=== PATIENT | male | born 1955 | race African-American/Black ===

== ENCOUNTER 2022-08-08 17:26 | Inpatient (IN) | payer MEDICARE, OTHER ==
[~2022-08-08] VITALS: Ht 180.3 cm; Wt 69.9 kg
[2022-08-08] MEDS ORDERED: FENTANYL CITRATE 100 MCG/2 ML AMPUL IV ONE (17:45)
--- NOTE | 2022-08-08 17:50 | NUR ---
PT DOES NOT REMEMBER HIS HOME MEDICATION NAMES AND DOSAGES. HIS RELATIVES ARE GOING TO BRING HIS HOME MED LIST LATER.
[2022-08-08] MEDS ORDERED: IV NORMAL SALINE 500 ML BAG IV ONE (18:15)
[2022-08-08] MEDS ORDERED: PROPOFOL 1,000 MG/100 ML BOTTLE IV ONE (18:15)
--- NOTE | 2022-08-08 18:46 | NUR ---
started at 183: administered bolus of Diprivan & attempted to reduce dislocation. Administered 3 more doses of Diprivan andreduction attempts, w/o success. Pt came around and became alert and oriented x 4. Finished by 1841. VSS.
[2022-08-08] MEDS ORDERED: MORPHINE SULFATE 4 MG/1 ML DISP.SYRIN IV ONE (19:00)
--- NOTE | 2022-08-08 19:06 | NUR ---
Dr. Gordon on panel call with Solomon Miller NP.
[2022-08-08] MEDS ORDERED: ONDANSETRON 4 MG/2 ML VIAL IV PRN (19:15)
[2022-08-08] MEDS ORDERED: HYDROCODONE/APAP 5-325MG TABLET PO PRN (19:15)
[2022-08-08] MEDS ORDERED: MAGNESIUM HYDROXIDE 30 ML LIQUID UDC PO PRN (19:15)
[2022-08-08] MEDS ORDERED: MORPHINE SULFATE 2 MG/1 ML DISP.SYRIN IV PRN (19:15)
[2022-08-08] MEDS ORDERED: REMEDY ESSENTIAL ZINC PASTE 113 GM TP PRN (19:15)
[2022-08-08] MEDS ORDERED: MORPHINE SULFATE 2 MG/1 ML DISP.SYRIN ONE (19:20)
[2022-08-08 19:24] LABS: HEMATOCRIT 34.2 % (36.7-47.1); MEAN CORPUSCULAR HEMOGLOBIN 27.5 uug (23.8-33.4); MEAN CORPUSCULAR VOLUME 85.4 fL (73.0-96.2); PLATELET COUNT (AUTO) 244 K/uL (152-348)
[2022-08-08 19:31] LABS: CREATININE 1.1 mg/dL (0.6-1.3); POTASSIUM 4.4 mmol/L (3.5-5.1)
--- NOTE | 2022-08-08 19:50 | NUR ---
MRSA and COVID swab sent to lab.
[2022-08-08] MEDS ORDERED: ONDANSETRON 4 MG/2 ML VIAL IV ONE (20:45)
[2022-08-08] MEDS ORDERED: HYDROMORPHONE 1 MG/1 ML DISP.SYRIN IV ONE ×2 (20:45→22:15)
[2022-08-08] MEDS ORDERED: FORM20VI IH (20:58)
[2022-08-08] MEDS ORDERED: ALBU18HF2 INH (20:58)
[2022-08-08] MEDS ORDERED: ALBU2.5V38 NEB (20:58)
[2022-08-08] MEDS ORDERED: GABA-536 PO (20:58)
[2022-08-08] MEDS ORDERED: SERT50TA PO (20:58)
[2022-08-08] MEDS ORDERED: FINA5TAB3 PO (20:58)
[2022-08-08] MEDS ORDERED: FAMO-132 PO (20:58)
[2022-08-08] MEDS ORDERED: SENN-261 PO (20:58)
[2022-08-08] MEDS ORDERED: TAMS-3 PO (20:58)
[2022-08-08] MEDS ORDERED: ROSU10TA2 PO (20:58)
[2022-08-08] MEDS ORDERED: BENZ200C53 PO (20:58)
[2022-08-08] MEDS ORDERED: AMLO10TA4 PO (20:58)
[2022-08-08] MEDS ORDERED: MEMA10TA PO (20:58)
[2022-08-08] MEDS ORDERED: HYDR-3972 PO (20:58)
[2022-08-08] MEDS ORDERED: LEVO50TA8 PO (20:58)
[2022-08-08] MEDS ORDERED: CLOP75TA15 PO (20:58)
[2022-08-08] MEDS ORDERED: REVE175V INH (20:58)
[2022-08-08] MEDS ORDERED: LEVE500T9 PO (20:58)
[2022-08-08] MEDS ORDERED: METF-494 PO (20:58)
[2022-08-08] MEDS ORDERED: PRED20TA PO (20:58)
[2022-08-08] MEDS ORDERED: HYDROMORPHONE 1 MG/1 ML DISP.SYRIN ONE (21:57)
--- NOTE | 2022-08-08 22:37 | NUR ---
Report given to [facility].
--- NOTE | 2022-08-08 23:00 | NUR ---
Received Pt and SBAR from [facility]. Pt is a 67 yr old male who was admitted for Right hip dislocation at 2255 on 08/09/22. Pt is A&Ox4. No known allergies. Current vitals are BP: 139/92, T: 98.2, P: 77, RR: 20, SpO2: 99%, and Pain: 7/10. Will give Pt Dilaudid once 4 hours have passed from previous administration. Pt has a condom catheter; Clear and yellow urine noted. Pt is scheduled to have surgery tomorrow w/ pt's consent. Pt has a 20G IV RAC, with no fluids running. Pt is NPO. Pt stated to having "a DNR." Will contact (or have day shift contact) Pt's sister, Valery Diaz, for the DNR. Safety measures in place. Will continue to monitor.
[2022-08-09 00:02] VITALS: BP 139/92
[2022-08-09] MEDS: HYDROMORPHONE 1 MG/1 ML DISP.SYRIN IV PRN ×2 (01:34→06:08)
[2022-08-09 05:20] VITALS: BP 158/94
[2022-08-09 06:30] LABS: HEMATOCRIT 32.9 % (36.7-47.1); MEAN CORPUSCULAR HEMOGLOBIN 27.1 uug (23.8-33.4); MEAN CORPUSCULAR VOLUME 85.4 fL (73.0-96.2); PLATELET COUNT (AUTO) 228 K/uL (152-348)
--- NOTE | 2022-08-09 07:00 | NUR ---
End of shift note: Pt is A&Ox3. Use Dilaudid to control pain. Pt scheduled to have surgery today, but could not find consent for surgery for today in Pt's record in [facility]. According to Pt, he is on a DNR. Will inform day shift of contacting Pt's sister for copy of DNR form. Pt on 4L O2 via NC. Safety measures are in place.
[2022-08-09 07:53] LABS: CREATININE 0.8 mg/dL (0.6-1.3); MAGNESIUM 2.2 mg/dL (1.8-2.4); PHOSPHOROUS 3.6 mg/dL (2.5-4.9); POTASSIUM 3.9 mmol/L (3.5-5.1)
[2022-08-09 08:00] LABS: THYROID STIMULATING HORMONE 0.639 mIU/mL (0.358-3.740)
[2022-08-09] MEDS ORDERED: PANTOPRAZOLE SODIUM 40 MG VIAL IV SCH (09:00)
[2022-08-09] MEDS ORDERED: INSULIN REGULAR, HUMAN 300 UNIT/3 ML VIAL SQ PRN (09:30)
[2022-08-09] MEDS ORDERED: DEXTROSE 50% 50 ML DISP.SYRIN IV PRN (09:30)
[2022-08-09] MEDS ORDERED: FENTANYL CITRATE 100 MCG/2 ML AMPUL ONE (10:35)
--- NOTE | 2022-08-09 10:35 | NUR ---
pt went to or via bed for the procedure
[2022-08-09] MEDS: BLOOD SUGAR DIAGNOSTIC 1 EACH STRIP VI SCH ×3 (12:24→20:41)
--- NOTE | 2022-08-09 12:55 | NUR ---
pt received back from recovery room via bed .vs are stable call light with in reach
[2022-08-09] MEDS: GABAPENTIN 400 MG CAPSULE PO SCH ×3 (12:57→20:35)
[2022-08-09 13:00] VITALS: BP 137/86
[2022-08-09] MEDS: POTASSIUM CHLORIDE 20 MEQ in IV D5 1/2 NS 1000 ML 1,000 ML IV PRN (13:33)
[2022-08-09 16:00] VITALS: BP 131/84
[2022-08-09] MEDS: levETIRAcetam 500 MG TABLET PO SCH (18:56)
[2022-08-09 20:00] VITALS: BP 121/76
[2022-08-09] MEDS: ATORVASTATIN 20 MG TABLET PO SCH (20:34)
[2022-08-09] MEDS: TAMSULOSIN HCL 0.4 MG CAP.SR.24H PO SCH (20:34)
[2022-08-09] MEDS: ACETAMINOPHEN 325 MG TABLET PO PRN (20:35)
[2022-08-09] MEDS ORDERED: levETIRAcetam 500 MG TABLET PO SCH (21:00)
[2022-08-10 04:00] VITALS: BP 105/67
--- NOTE | 2022-08-10 04:38 | NUR ---
AAOx4 On 2L nasal cannula. Afebrile at beginning of shift, Temp 102.[address] Membreno aware. Blood cultures x2, ua Urine C&S collected and sent to lab. Ice pack applied. Will monitor patient. No acute distress noted.Will monitor patient's temperature.
[2022-08-10] MEDS: POTASSIUM CHLORIDE 20 MEQ in IV D5 1/2 NS 1000 ML 1,000 ML IV PRN ×2 (05:24→20:57)
[2022-08-10] MEDS: LEVOTHYROXINE SODIUM 50 MCG TABLET PO SCH (06:10)
[2022-08-10] MEDS: BLOOD SUGAR DIAGNOSTIC 1 EACH STRIP VI SCH ×4 (06:31→20:16)
[2022-08-10] MEDS: MORPHINE SULFATE 2 MG/1 ML DISP.SYRIN IV PRN ×3 (06:37→20:17)
[2022-08-10] MEDS: FINASTERIDE 5 MG TABLET PO SCH (08:16)
[2022-08-10] MEDS: MEMANTINE HCL 10 MG TABLET PO SCH (08:16)
[2022-08-10] MEDS: levETIRAcetam 500 MG TABLET PO SCH (08:16)
[2022-08-10] MEDS: AMLODIPINE 10 MG TABLET PO SCH (08:16)
[2022-08-10] MEDS: GABAPENTIN 400 MG CAPSULE PO SCH ×4 (08:16→20:16)
[2022-08-10] MEDS: SERTRALINE HCL 50 MG TABLET PO SCH (08:16)
[2022-08-10] MEDS: PANTOPRAZOLE SODIUM 40 MG TABLET.DR PO SCH (08:56)
[2022-08-10] MEDS ORDERED: CLOPIDOGREL 75 MG TABLET PO SCH (09:00)
[2022-08-10] MEDS ORDERED: Medication Not On Formulary EA (Rosuvastatin Calcium (Crestor) 1 TAB) PO SCH (09:00)
[2022-08-10] MEDS ORDERED: LEVE500T83 PO (10:11)
[2022-08-10 12:01] LABS: HEMATOCRIT 35.2 % (36.7-47.1); MEAN CORPUSCULAR HEMOGLOBIN 28.4 uug (23.8-33.4); MEAN CORPUSCULAR VOLUME 86.2 fL (73.0-96.2); PLATELET COUNT (AUTO) 203 K/uL (152-348)
[2022-08-10 14:31] VITALS: BP 116/77
[2022-08-10] MEDS: ACETAMINOPHEN 325 MG TABLET PO PRN ×2 (15:27→21:42)
[2022-08-10] MEDS: levoFLOXacin 500 MG/D5W 500 MG in PREMIXED 1 EACH IV SCH (16:21)
[2022-08-10 17:10] VITALS: BP 124/78
--- NOTE | 2022-08-10 19:30 | NUR ---
Received patient lying in bed. AAOx4. In no acute distress. Noted with occasional cough, but non-productive. Complain of pain, will provide pain medication per order. Condom catheter intact and patent. IV site on right AC intact and patent. INF infusing. Needs assessed and attended to. Safety measure initiated and call light within reached.
[2022-08-10 20:00] VITALS: BP 112/81
[2022-08-10] MEDS: TAMSULOSIN HCL 0.4 MG CAP.SR.24H PO SCH (20:16)
[2022-08-10] MEDS: ATORVASTATIN 20 MG TABLET PO SCH (20:16)
[2022-08-10] MEDS: LEVETIRACETAM 500 MG PO SCH (20:16)
--- NOTE | 2022-08-10 22:12 | NUR ---
patient IV site on right AC keeps on beeping when patient bends his elbow. Place new IV on left FA #22G and continue infusing IV fluids at that site.
[2022-08-11 04:00] VITALS: BP 119/72
--- NOTE | 2022-08-11 05:19 | NUR ---
Slept well through out the night. IV site on both right AC and left FA remains intact and patent. IVF infusing to left FA IV site. Condom cath intact and patent. Needs attended to and met. Safety measure maintained and call light within reached.
[2022-08-11] MEDS: LEVOTHYROXINE SODIUM 50 MCG TABLET PO SCH (06:14)
[2022-08-11] MEDS: PANTOPRAZOLE SODIUM 40 MG TABLET.DR PO SCH (06:14)
[2022-08-11] MEDS: BLOOD SUGAR DIAGNOSTIC 1 EACH STRIP VI SCH ×4 (06:34→20:42)
[2022-08-11 07:27] LABS: HEMATOCRIT 27.8 % (36.7-47.1); MEAN CORPUSCULAR HEMOGLOBIN 28.3 uug (23.8-33.4); MEAN CORPUSCULAR VOLUME 89.7 fL (73.0-96.2); PLATELET COUNT (AUTO) 156 K/uL (152-348)
[2022-08-11 07:31] LABS: CARBON DIOXIDE 27 mmol/L (21-32); CHLORIDE 102 mmol/L (98-107); CREATININE 0.7 mg/dL (0.6-1.3); UREA NITROGEN, BLOOD 7 mg/dL (7-18)
[2022-08-11] MEDS: MEMANTINE HCL 10 MG TABLET PO SCH (08:08)
[2022-08-11] MEDS: FINASTERIDE 5 MG TABLET PO SCH (08:08)
[2022-08-11] MEDS: GABAPENTIN 400 MG CAPSULE PO SCH ×4 (08:08→20:33)
[2022-08-11] MEDS: AMLODIPINE 10 MG TABLET PO SCH (08:08)
[2022-08-11] MEDS: SERTRALINE HCL 50 MG TABLET PO SCH (08:08)
[2022-08-11 08:37] LABS: GLUCOSE 792 mg/dL (74-106); POTASSIUM 7.4 mmol/L (3.5-5.1)
[2022-08-11 11:38] VITALS: BP 114/73
[2022-08-11 11:40] LABS: *BILIRUBIN,URIN NEGATIVE (NEGATIVE); *BLOOD, URINE NEGATIVE (NEGATIVE); *CLARITY,URINE CLEAR (CLEAR); *COLOR,URINE YELLOW (YELLOW); *KETONES,URINE NEGATIVE (NEGATIVE); *UROBILINOGEN,URINE 0.2 E.U./dl (NORMAL); LEUKOCYTE ESTERASE ,URINE 1+ (NEGATIVE); NITRITE, URINE NEGATIVE (NEGATIVE); UGLUCOSE NEGATIVE (NEGATIVE)
[2022-08-11] MEDS: MORPHINE SULFATE 2 MG/1 ML DISP.SYRIN IV PRN ×2 (11:48→20:32)
[2022-08-11 13:00] LABS: CREATININE 0.9 mg/dL (0.6-1.3); POTASSIUM 4.4 mmol/L (3.5-5.1)
[2022-08-11 13:10] LABS: BACTERIA,URINE NONE SEEN /HPF (NONE SEEN); RBC,URINE 0-3 /HPF (0-3); SQUAMOUS EPITHELIAL CELL,UR FEW /HPF (NONE SEEN)
[2022-08-11] MEDS: levoFLOXacin 500 MG/D5W 500 MG in PREMIXED 1 EACH IV SCH (15:17)
[2022-08-11 16:24] VITALS: BP 108/77
--- NOTE | 2022-08-11 19:30 | NUR ---
Received patient lying in bed. AAOx4 with forgetfulness. In no acute distress. IV site on right AC and left FA intact and patent. Needs assessed and attended to. Safety measure initiated and call light within reached.
[2022-08-11 20:00] VITALS: BP 122/79
[2022-08-11] MEDS: LEVETIRACETAM 500 MG PO SCH (20:32)
[2022-08-11] MEDS: ATORVASTATIN 20 MG TABLET PO SCH (20:33)
[2022-08-11] MEDS: ACETAMINOPHEN 325 MG TABLET PO PRN (20:33)
[2022-08-11] MEDS: TAMSULOSIN HCL 0.4 MG CAP.SR.24H PO SCH (20:33)
[2022-08-12 04:00] VITALS: BP 120/68
--- NOTE | 2022-08-12 05:19 | NUR ---
Slept well through out the night. IV site on both right AC and left FA remains intact and patent. Abduction pillow remians in bet legs. Needs attended to and met. Safety measure maintained and call light within reached.
[2022-08-12] MEDS: PANTOPRAZOLE SODIUM 40 MG TABLET.DR PO SCH (06:02)
[2022-08-12] MEDS: LEVOTHYROXINE SODIUM 50 MCG TABLET PO SCH (06:02)
[2022-08-12] MEDS: BLOOD SUGAR DIAGNOSTIC 1 EACH STRIP VI SCH ×2 (06:34→10:49)
[2022-08-12 06:46] LABS: HEMATOCRIT 32.5 % (36.7-47.1); MEAN CORPUSCULAR HEMOGLOBIN 27.8 uug (23.8-33.4); MEAN CORPUSCULAR VOLUME 85.5 fL (73.0-96.2); PLATELET COUNT (AUTO) 197 K/uL (152-348)
[2022-08-12 07:16] LABS: CARBON DIOXIDE 33 mmol/L (21-32); CHLORIDE 104 mmol/L (98-107); CREATININE 0.7 mg/dL (0.6-1.3); GLUCOSE 96 mg/dL (74-106); POTASSIUM 3.9 mmol/L (3.5-5.1); UREA NITROGEN, BLOOD 9 mg/dL (7-18)
[2022-08-12] MEDS: FINASTERIDE 5 MG TABLET PO SCH (08:12)
[2022-08-12] MEDS: MEMANTINE HCL 10 MG TABLET PO SCH (08:12)
[2022-08-12] MEDS: GABAPENTIN 400 MG CAPSULE PO SCH ×3 (08:12→16:08)
[2022-08-12] MEDS: AMLODIPINE 10 MG TABLET PO SCH (08:12)
[2022-08-12] MEDS: SERTRALINE HCL 50 MG TABLET PO SCH (08:12)
[2022-08-12 11:31] VITALS: BP 103/75
[2022-08-12] MEDS ORDERED: LEVO500T90 PO (13:23)
[2022-08-12] MEDS ORDERED: ATOR20TA PO (13:23)
[2022-08-12] MEDS ORDERED: PANT40TA49 PO (13:23)
[2022-08-12] MEDS: MORPHINE SULFATE 2 MG/1 ML DISP.SYRIN IV PRN (14:06)
[2022-08-12] MEDS ORDERED: levoFLOXacin 500 MG TABLET PO SCH (15:00)
[2022-08-12 15:43] VITALS: BP 100/68
--- NOTE | 2022-08-12 16:48 | NUR ---
dc orders received noted and carried out,dc instruction given to the pt .dc pt to aru via bed in stable condition
[2022-08-12] MEDS ORDERED: LIDOCAINE-MPF 2% 5 ML VIAL IJ ONE (16:59)
[2022-08-12] MEDS ORDERED: PROPOFOL 200 MG/20 ML BOTTLE IV ONE (16:59)
[2022-08-12] MEDS ORDERED: METF-440 PO (19:53)
== END 2022-08-12 17:00 | DRG 560 ==
LOC: ER 17:41 → MEDSURG3 22:39
PROVIDERS: ADMIT Nurse Practitioner Acute Care; ATTEND Nurse Practitioner Acute Care
PROC: 0SWRXJZ Revision of Synthetic Substitute in Right Hip Joint, Femoral Surface, External Approach (ICD-10-PCS; principal; 2022-08-09)
DX: T84.020A Dislocation of internal right hip prosthesis, initial encounter (principal); J96.10 Chronic respiratory failure, unspecified whether with hypoxia or hypercapnia; Y79.8 Miscellaneous orthopedic devices associated with adverse incidents, not elsewhere classified; Y92.038 Other place in apartment as the place of occurrence of the external cause; E11.9 Type 2 diabetes mellitus without complications; Y79.2 Prosthetic and other implants, materials and accessory orthopedic devices associated with adverse incidents; Z86.73 Personal history of transient ischemic attack (TIA), and cerebral infarction without residual deficits; Z96.643 Presence of artificial hip joint, bilateral; G40.909 Epilepsy, unspecified, not intractable, without status epilepticus; J43.9 Emphysema, unspecified; N40.0 Benign prostatic hyperplasia without lower urinary tract symptoms; I10 Essential (primary) hypertension; R50.9 Fever, unspecified; F03.90 Unspecified dementia, unspecified severity, without behavioral disturbance, psychotic disturbance, mood disturbance, and anxiety; Z99.81 Dependence on supplemental oxygen; Z79.899 Other long term (current) drug therapy; Z79.82 Long term (current) use of aspirin; Z79.890 Hormone replacement therapy; E03.9 Hypothyroidism, unspecified
CPT/HCPCS: 36415; 71045; 73502; 73503; 73551; 83735; 84100; 84443; 85025; 85610; 87040; 93005; A4663; C9113; G0378; G0500; J1170; J1815; J1956; J2270; J2405; J3010; J3480; J3490

== ENCOUNTER 2022-08-12 17:37 | Inpatient (IN) | payer MEDICARE, OTHER ==
[~2022-08-12] VITALS: Ht 180.3 cm; Wt 69.9 kg
[~2022-08-12 17:37] MED LIST: ALBU18HF2 INH; ALBU2.5V38 NEB; AMLO10TA4 PO; ATOR20TA PO; BENZ200C53 PO; CLOP75TA15 PO; FAMO-132 PO; FINA5TAB3 PO; FORM20VI IH; GABA-536 PO; HYDR-3972 PO; LEVE500T83 PO; LEVO500T90 PO; LEVO50TA8 PO; MEMA10TA PO; METF-494 PO; PANT40TA49 PO; PRED20TA PO; REVE175V INH; ROSU10TA2 PO; SENN-261 PO; SERT50TA PO; TAMS-3 PO
[2022-08-12 17:54] VITALS: BP 122/56
--- NOTE | 2022-08-12 17:58 | NUR ---
67 year old male admitted to rehab vias bed in stable condition.vs are stable call light with in reach md notified for admission orders
--- NOTE | 2022-08-12 19:20 | NUR ---
Received Pt from Day shift. Pt is A&Ox4 and is on 2L of O2 NC. Pt is admitted as Rehab Pt. Safety measures implemented. Pt has a 22G on left wrist w/ no fluids running. Safety measures in check. Will continue to monitor.
[2022-08-12] MEDS ORDERED: ALBUTEROL SULFATE 2.5 MG/3 ML NEBU NEB PRN (19:45)
[2022-08-12] MEDS ORDERED: METF-440 PO (19:53)
[2022-08-12] MEDS: SENNOSIDES 1 TABLET PO SCH (20:19)
[2022-08-12] MEDS: ATORVASTATIN 20 MG TABLET PO SCH (20:19)
[2022-08-12] MEDS: TAMSULOSIN HCL 0.4 MG CAP.SR.24H PO SCH (20:19)
[2022-08-12] MEDS: GABAPENTIN 400 MG CAPSULE PO SCH (20:20)
[2022-08-12] MEDS: LEVETIRACETAM 500 MG PO SCH (21:47)
[2022-08-12] MEDS: HYDROCODONE/APAP 5-325MG TABLET PO PRN (21:47)
[2022-08-12 21:56] VITALS: BP 109/77
[2022-08-13 04:00] VITALS: BP 101/59
[2022-08-13] MEDS: LEVOTHYROXINE SODIUM 50 MCG TABLET PO SCH (06:13)
--- NOTE | 2022-08-13 06:44 | NUR ---
End of shift Note: Pt is A&Ox4 and is cooperative. Currently ST on tele. Pt on no O2. Pt is continent. Vitals are WNL. Safety measures implemented. Addendum: 08/13/22 at 0648 by BERNARDA JUAREZ RN Disregard Note.
--- NOTE | 2022-08-13 06:48 | NUR ---
End of shift Note: Pt is A&Ox4 and is cooperative. Currently ST on tele. Pt on 2L O2 via NC. Pt is continent. Vitals are BP: 101/59, P: 62, RR: 18, SpO2: 100%, and T: 98.4. There was no BM this shift. Safety measures implemented. Safety measures are implemented.
[2022-08-13 07:34] VITALS: BP 112/81
[2022-08-13] MEDS: METFORMIN HCL 500 MG TABLET PO SCH ×2 (08:28→17:20)
[2022-08-13] MEDS: AMLODIPINE 10 MG TABLET PO SCH (08:28)
[2022-08-13] MEDS: SERTRALINE HCL 50 MG TABLET PO SCH (08:28)
[2022-08-13] MEDS: MEMANTINE HCL 10 MG TABLET PO SCH (08:28)
[2022-08-13] MEDS: predniSONE 10 MG TABLET PO SCH (08:28)
[2022-08-13] MEDS: FAMOTIDINE 20 MG TABLET PO SCH (08:28)
[2022-08-13] MEDS: FINASTERIDE 5 MG TABLET PO SCH (08:28)
[2022-08-13] MEDS: CLOPIDOGREL 75 MG TABLET PO SCH (08:28)
[2022-08-13] MEDS: GABAPENTIN 400 MG CAPSULE PO SCH ×4 (08:37→20:41)
[2022-08-13] MEDS: HYDROCODONE/APAP 5-325MG TABLET PO PRN ×3 (08:49→20:46)
[2022-08-13] MEDS ORDERED: BENZONATATE 100 MG CAPSULE PO PRN (09:00)
[2022-08-13] MEDS ORDERED: HYDROCODONE/APAP 5-325MG TABLET PO PRN (09:00)
[2022-08-13] MEDS ORDERED: ALBUTEROL SULFATE 2.5 MG/3 ML NEBU NEB SCH (09:00)
[2022-08-13] MEDS ORDERED: Medication Not On Formulary EA (Rosuvastatin Calcium (Crestor) 1 TAB) PO SCH (09:00)
[2022-08-13] MEDS ORDERED: Medication Not On Formulary EA (Metformin Hcl (Metformin Hcl Er) 1 TAB) PO SCH (09:00)
[2022-08-13] MEDS ORDERED: levoFLOXacin 500 MG TABLET PO SCH (15:00)
[2022-08-13 15:14] VITALS: BP 109/74
[2022-08-13] MEDS: TAMSULOSIN HCL 0.4 MG CAP.SR.24H PO SCH (20:40)
[2022-08-13] MEDS: ATORVASTATIN 20 MG TABLET PO SCH (20:40)
[2022-08-13] MEDS: SENNOSIDES 1 TABLET PO SCH (20:41)
[2022-08-13] MEDS: LEVETIRACETAM 500 MG PO SCH (20:41)
--- NOTE | 2022-08-13 22:00 | NUR ---
1915- The patient is aox4 and on 2 liters nasal cannula. The patient has a left wrist hep lock that is clean, dry, and intact. The patient has no signs of distress or complains of pain. Call light within reach, bed at lowest position, bed alarm on, and wheels lock. Will continue to monitor throughout the shift. 2200- The patient request for extra water. Item is given to the patient. The patient has no signs of distress. Will continue to monitor throughout the shift. 0100- The patient is asleep and has no complains of pain. The patient has no signs of distress. Will continue to monitor throughout the shift.
[2022-08-14] MEDS: LEVOTHYROXINE SODIUM 50 MCG TABLET PO SCH (06:03)
[2022-08-14 07:49] VITALS: BP 107/72
[2022-08-14] MEDS: HYDROCODONE/APAP 5-325MG TABLET PO PRN ×3 (07:52→21:10)
[2022-08-14] MEDS: METFORMIN HCL 500 MG TABLET PO SCH ×2 (08:01→17:43)
[2022-08-14] MEDS: FINASTERIDE 5 MG TABLET PO SCH (08:01)
[2022-08-14] MEDS: GABAPENTIN 400 MG CAPSULE PO SCH ×4 (08:02→20:58)
[2022-08-14] MEDS: predniSONE 10 MG TABLET PO SCH (08:02)
[2022-08-14] MEDS: MEMANTINE HCL 10 MG TABLET PO SCH (08:02)
[2022-08-14] MEDS: CLOPIDOGREL 75 MG TABLET PO SCH (08:02)
[2022-08-14] MEDS: SERTRALINE HCL 50 MG TABLET PO SCH (08:02)
[2022-08-14] MEDS: FAMOTIDINE 20 MG TABLET PO SCH (08:03)
[2022-08-14] MEDS: AMLODIPINE 10 MG TABLET PO SCH (08:03)
[2022-08-14] MEDS ORDERED: [UNRECOGNIZED DRUG - OTHER] INH SCH (13:00)
[2022-08-14] MEDS ORDERED: PATIENT MAY USE OWN MED- MD OK INH SCH ×2 (13:30→17:00)
[2022-08-14] MEDS ORDERED: PATIENT MAY USE OWN MED- MD OK INH PRN (13:30)
--- NOTE | 2022-08-14 13:44 | NUR ---
SISTER JF BROUGHT HOME MEDS ( INHALATION MEDICATIONS) OKAYED BY TORIE CHAMBERS AND HANDED TO PHARMACIST DAIJA.
[2022-08-14 16:34] VITALS: BP 114/71
[2022-08-14] MEDS: [UNRECOGNIZED DRUG - OTHER] INH SCH (17:15)
[2022-08-14] MEDS: TAMSULOSIN HCL 0.4 MG CAP.SR.24H PO SCH (20:57)
[2022-08-14] MEDS: SENNOSIDES 1 TABLET PO SCH (20:57)
[2022-08-14] MEDS: ROSUVASTATIN 10 MG PO SCH (20:57)
[2022-08-14] MEDS: LEVETIRACETAM 500 MG PO SCH (20:57)
[2022-08-14] MEDS: FORMOTEROL 20 MCG IH SCH (21:18)
[2022-08-14 21:19] VITALS: BP 115/81
[2022-08-15 04:58] VITALS: BP 122/62
[2022-08-15] MEDS: LEVOTHYROXINE SODIUM 50 MCG TABLET PO SCH (06:11)
[2022-08-15 08:01] VITALS: BP 105/69
[2022-08-15] MEDS: HYDROCODONE/APAP 5-325MG TABLET PO PRN ×3 (08:37→20:46)
[2022-08-15] MEDS: FINASTERIDE 5 MG TABLET PO SCH (08:49)
[2022-08-15] MEDS: predniSONE 10 MG TABLET PO SCH (08:49)
[2022-08-15] MEDS: METFORMIN HCL 500 MG TABLET PO SCH ×2 (08:49→17:18)
[2022-08-15] MEDS: AMLODIPINE 10 MG TABLET PO SCH (08:50)
[2022-08-15] MEDS: MEMANTINE HCL 10 MG TABLET PO SCH (08:50)
[2022-08-15] MEDS: SERTRALINE HCL 50 MG TABLET PO SCH (08:50)
[2022-08-15] MEDS: FAMOTIDINE 20 MG TABLET PO SCH (08:51)
[2022-08-15] MEDS: CLOPIDOGREL 75 MG TABLET PO SCH (08:51)
[2022-08-15] MEDS: GABAPENTIN 400 MG CAPSULE PO SCH ×4 (08:56→20:44)
[2022-08-15] MEDS ORDERED: PATIENT MAY USE OWN MED- MD OK PO SCH (09:00)
[2022-08-15] MEDS: IPRATROPIUM INH PRN ×2 (09:06→13:57)
[2022-08-15] MEDS: ALBUTEROL INH PRN ×2 (09:06→13:57)
[2022-08-15] MEDS: FORMOTEROL 20 MCG IH SCH ×2 (09:15→21:38)
[2022-08-15 11:09] VITALS: BP 106/62
[2022-08-15] MEDS: [UNRECOGNIZED DRUG - OTHER] INH SCH (13:57)
--- NOTE | 2022-08-15 16:22 | NUR ---
INDIVIDUALIZED PLAN OF CARE
[2022-08-15 16:58] VITALS: BP 96/67
[2022-08-15] MEDS: NUTRISOURCE FIBER 4 GM PACKET PO SCH (17:18)
[2022-08-15] MEDS: TAMSULOSIN HCL 0.4 MG CAP.SR.24H PO SCH (20:44)
[2022-08-15] MEDS: SENNOSIDES 1 TABLET PO SCH (20:44)
[2022-08-15] MEDS: LEVETIRACETAM 500 MG PO SCH (20:49)
[2022-08-15] MEDS: ROSUVASTATIN 10 MG PO SCH (20:50)
[2022-08-15 22:16] VITALS: BP 127/77
[2022-08-16 04:18] VITALS: BP 103/55
[2022-08-16] MEDS: LEVOTHYROXINE SODIUM 50 MCG TABLET PO SCH (06:26)
[2022-08-16 08:23] VITALS: BP 113/72
[2022-08-16] MEDS: FAMOTIDINE 20 MG TABLET PO SCH (09:07)
[2022-08-16] MEDS: MEMANTINE HCL 10 MG TABLET PO SCH (09:07)
[2022-08-16] MEDS: AMLODIPINE 10 MG TABLET PO SCH (09:07)
[2022-08-16] MEDS: SERTRALINE HCL 50 MG TABLET PO SCH (09:07)
[2022-08-16] MEDS: METFORMIN HCL 500 MG TABLET PO SCH ×2 (09:07→17:17)
[2022-08-16] MEDS: FINASTERIDE 5 MG TABLET PO SCH (09:08)
[2022-08-16] MEDS: CLOPIDOGREL 75 MG TABLET PO SCH (09:08)
[2022-08-16] MEDS: GABAPENTIN 400 MG CAPSULE PO SCH ×4 (09:08→20:23)
[2022-08-16] MEDS: HYDROCODONE/APAP 5-325MG TABLET PO PRN ×3 (09:08→20:51)
[2022-08-16] MEDS: NUTRISOURCE FIBER 4 GM PACKET PO SCH (09:08)
[2022-08-16] MEDS: predniSONE 10 MG TABLET PO SCH (09:13)
[2022-08-16] MEDS: FORMOTEROL 20 MCG IH SCH ×2 (09:30→19:30)
[2022-08-16] MEDS: IPRATROPIUM INH PRN (10:06)
[2022-08-16] MEDS: ALBUTEROL INH PRN (10:06)
[2022-08-16] MEDS: [UNRECOGNIZED DRUG - OTHER] INH SCH (12:37)
[2022-08-16 16:48] VITALS: BP 110/66
--- NOTE | 2022-08-16 18:27 | NUR ---
no events noted during shift
[2022-08-16 20:08] VITALS: BP 120/72
[2022-08-16] MEDS: SENNOSIDES 1 TABLET PO SCH (20:23)
[2022-08-16] MEDS: ROSUVASTATIN 10 MG PO SCH (20:23)
[2022-08-16] MEDS: LEVETIRACETAM 500 MG PO SCH (20:23)
[2022-08-16] MEDS: TAMSULOSIN HCL 0.4 MG CAP.SR.24H PO SCH (20:23)
[2022-08-17] MEDS: HYDROCODONE/APAP 5-325MG TABLET PO PRN ×3 (05:08→14:11)
[2022-08-17 05:13] VITALS: BP 116/76
--- NOTE | 2022-08-17 05:30 | NUR ---
no events noted overnight, patient is alert, oriented x4, no sob, respirations are even nonlabored, skin warm and dry to touch, pain is managed with pain medication and with nonpharmacological interventions. effective. kept patient clean and comfortable.
[2022-08-17] MEDS: LEVOTHYROXINE SODIUM 50 MCG TABLET PO SCH (06:09)
--- NOTE | 2022-08-17 07:15 | NUR ---
Received report from night nurseDexter. Pt in bed awake, no s/s of distress noted, safety measures in place.
[2022-08-17 07:59] VITALS: BP 109/72
[2022-08-17] MEDS: METFORMIN HCL 500 MG TABLET PO SCH (08:48)
[2022-08-17] MEDS: FINASTERIDE 5 MG TABLET PO SCH (08:48)
[2022-08-17] MEDS: MEMANTINE HCL 10 MG TABLET PO SCH (08:49)
[2022-08-17] MEDS: predniSONE 10 MG TABLET PO SCH (08:49)
[2022-08-17] MEDS: GABAPENTIN 400 MG CAPSULE PO SCH ×2 (08:50→12:41)
[2022-08-17] MEDS: SERTRALINE HCL 50 MG TABLET PO SCH (08:52)
[2022-08-17] MEDS: FAMOTIDINE 20 MG TABLET PO SCH (08:52)
[2022-08-17] MEDS: AMLODIPINE 10 MG TABLET PO SCH (08:53)
[2022-08-17] MEDS: CLOPIDOGREL 75 MG TABLET PO SCH (08:54)
[2022-08-17] MEDS: FORMOTEROL 20 MCG IH SCH (08:58)
[2022-08-17] MEDS ORDERED: PSYLLIUM SEED PACKET PO SCH (09:00)
[2022-08-17] MEDS: NUTRISOURCE FIBER 4 GM PACKET PO SCH (09:10)
--- NOTE | 2022-08-17 11:46 | NUR ---
Spoke to Dr. Álvarez, plan to D/C pt home today via ambulance at 3pm. I spoke to pt who agrees to plan for D/C today, he spoke to his sister Valery who will be home to receive him today.
[2022-08-17] MEDS: [UNRECOGNIZED DRUG - OTHER] INH SCH (12:11)
--- NOTE | 2022-08-17 15:30 | NUR ---
Pt discharged to ambulance attendants. Pt d/c'd own IV, no signs/s of infection or bleeding. Pt to follow up with primary MD within 1 week. Discharge instructions given. Pt verbalized understanding. No SOB upon D/C. Pt stable. Pt to follow up regarding vaccinations with primary doctor. Addendum: 08/17/22 at 1642 by RODRIGUE LEYVA RN Home Rxs given to pt prior to discharge.
[2022-08-17 15:43] VITALS: BP 116/76
== END 2022-08-17 16:15 | disposition home health service (06) | DRG 949 ==
PROVIDERS: ADMIT Physical Medicine & Rehabilitation; ATTEND Physical Medicine & Rehabilitation
DX: T84.020D Dislocation of internal right hip prosthesis, subsequent encounter (principal); J96.10 Chronic respiratory failure, unspecified whether with hypoxia or hypercapnia; E03.9 Hypothyroidism, unspecified; E11.9 Type 2 diabetes mellitus without complications; E78.5 Hyperlipidemia, unspecified; F03.90 Unspecified dementia, unspecified severity, without behavioral disturbance, psychotic disturbance, mood disturbance, and anxiety; G40.909 Epilepsy, unspecified, not intractable, without status epilepticus; I10 Essential (primary) hypertension; N40.0 Benign prostatic hyperplasia without lower urinary tract symptoms; Z86.73 Personal history of transient ischemic attack (TIA), and cerebral infarction without residual deficits; Z87.891 Personal history of nicotine dependence; Z91.81 History of falling; Z96.643 Presence of artificial hip joint, bilateral; J44.9 Chronic obstructive pulmonary disease, unspecified; M19.90 Unspecified osteoarthritis, unspecified site; R53.81 Other malaise; R20.0 Anesthesia of skin
CPT/HCPCS: 94640; 94664; 97535-GO-CO; J7512

== ENCOUNTER 2024-01-08 18:47 | Emergency (ER) | payer MEDICARE, OTHER ==
[~2024-01-08] VITALS: Ht 180.3 cm; Wt 65.8 kg
[~2024-01-08 18:47] MED LIST changes: -ALBU2.5V38 NEB; +METF-440 PO; -METF-494 PO
[2024-01-08 20:54] VITALS: BP 133/86; O2SAT 99
== END 2024-01-08 20:53 | disposition home or self-care (01) ==
LOC: ER 18:48
DX: J96.11 Chronic respiratory failure with hypoxia (principal); R03.0 Elevated blood-pressure reading, without diagnosis of hypertension; J43.9 Emphysema, unspecified; E11.9 Type 2 diabetes mellitus without complications; F03.90 Unspecified dementia, unspecified severity, without behavioral disturbance, psychotic disturbance, mood disturbance, and anxiety; Z79.899 Other long term (current) drug therapy
CPT/HCPCS: A4606; A4663